=== PATIENT | female | born 1960 | race Caucasian/White ===

== ENCOUNTER → 2017-07-07 | Outpatient (CLI) | payer OTHER | LOC: FIMAGING 12:40 | PROVIDERS: ATTEND Internal Medicine | DX: Z12.31 Encounter for screening mammogram for malignant neoplasm of breast (principal) | CPT/HCPCS: G0202 ==

== ENCOUNTER 2017-11-01 15:57 | Emergency (ER) | payer OTHER ==
[2017-11-01 16:03] VITALS: RESP 16; TEMP 98.4
--- NOTE | 2017-11-01 16:25 | EDPHY ---
H & P Time Seen by Provider: 11/01/17 16:02 HPI/ROS: 57-year-old female presents complaining of cold symptoms, followed by cough productive of clear, yellowish sputum. She has no history of chronic lung disease, she has no history of smoking. She denies fevers or chills Review of systems As per HPI-positive URI symptoms General no fever no chills no weakness HEENT no eye pain no eye discharge. No eye redness, no sore throat Respiratory positive cough, no shortness of breath Cardiac no chest pain, no peripheral edema GI no abdominal pain, no diarrhea, no constipation, no nausea, no vomiting no flank pain, no hematuria, no dysuria Musculoskeletal no myalgias, no joint pain Heme no easy bruising, no easy bleeding Endo no polyuria, no polydipsia Skin no rashes, no pruritus Neuro no syncope, no dizziness, no headaches Psych is no suicidal ideation, no homicidal ideation Past Medical/Surgical History: Noncontributory Social History: Denies alcohol, drug or tobacco use Smoking Status: Never smoked Physical Exam: 57-year-old female Alert and oriented nontoxic appearance, no acute distress afebrile Atraumatic normocephalic Extraocular muscles intact, anicteric Nares mild yellowish discharge Oropharynx no erythema no tonsillar swelling no exudate no uvular deviation, tolerating own secretions Neck supple no lymphadenopathy Lungs clear to auscultation bilaterally Heart regular rate and rhythm Abdomen normoactive bowel sounds soft nontender Extremities no cyanosis clubbing or edema Skin no rash Constitutional: Initial Vital Signs Temperature (C) 36.9 C 11/01/17 16:00 Heart Rate 93 11/01/17 16:00 Respiratory Rate 16 11/01/17 16:00 Blood Pressure 125/89 H 11/01/17 16:00 O2 Sat (%) 94 11/01/17 16:00 O2 Delivery Mode Room Air Allergies/Adverse Reactions: No Known Allergies Allergy (Verified 11/01/17 16:03) Home Medications: Medication Instructions Recorded Herbals/Supplements -Info Only 11/01/17 VITAMIN D 11/01/17 Vitamin C 11/01/17 Medical Decision Making - Diagnostics Imaging Results: Imaging Impressions Chest X-Ray 11/01/17 16:31 Impression: Mild central bronchitis. ED Course/Re-evaluation: Patient seen and evaluated for cold symptoms and cough Chest x-ray negative Impression Bronchitis Plan Symptomatic care Such as [id number] cough syrup, cold medicines Advised patient to rest drink plenty of liquids Follow-up with primary care physician if not improving Differential Diagnosis: Differential diagnosis considered but not limited to: Bronchitis, pneumonia Departure - Departure Disposition: Home, Routine, Self-Care Clinical Impression: Acute bronchitis Condition: Good Instructions: Acute Bronchitis (ED) Additional Instructions: Follow up with her primary care physician if not improving. Return to emergency for high fever, difficulty breathing or worsening of symptoms. Your chest x-ray preliminary reading looks normal, a final reading will be back later this afternoon if there are any findings of concern we will contact you immediately. Referrals: Latoya Sharpe [Primary Care Provider] - As per Instructions
[2017-11-01 17:28] VITALS: BP 119/87; PULSE 67; O2SAT 95
== END 2017-11-01 17:29 | disposition home or self-care (01) ==
LOC: CED 15:57
DX: J20.9 Acute bronchitis, unspecified (principal)
CPT/HCPCS: 71046-PO

== ENCOUNTER → 2018-06-22 | Outpatient (CLI) | payer OTHER | LOC: FIMAGING 10:46 | PROVIDERS: ATTEND Obstetrics & Gynecology | DX: Z12.31 Encounter for screening mammogram for malignant neoplasm of breast (principal) ==